=== PATIENT | male | born 1995 | race Two or more races ===

== ENCOUNTER → 2025-01-26 | Outpatient (CLI) | payer BC, SELFPAY ==
[2025-01-26 10:55] LABS: Collection Type, Urine Clean Catch; WBC,Urine 0 /hpf (0-5)
[2025-01-26 11:30] LABS: Basophils # (Auto) 0.1 Thou/mm3 (0.0-0.2); Basophils % (Auto) 1 % (0-2.5); Eosinophils # (Auto) 0.8 Thou/mm3 (0.0-0.5); Eosinophils % (Auto) 8 % (0-10); Hemoglobin 16.1 g/dL (13.5-16.0); Immature Granulocytes % (Auto) 2 % (0-0); Immature Granulocytes Auto 0.19 Thou/mm3 (0.00-0.00); Lymphocytes # (Auto) 2.2 Thou/mm3 (1.0-4.8); Lymphocytes % (Auto) 21 % (10-50); Mean Corpuscular HGB Conc 32.9 g/dl (31.0-37.0); Mean Corpuscular Hemoglobin 28.4 pg (25.0-35.0); Mean Corpuscular Volume 86 fL (80-100); Monocytes # (Auto) 0.7 Thou/mm3 (0.0-0.8); Monocytes % (Auto) 7 % (0-12); Neutrophils # (Auto) 6.2 Thou/mm3 (1.8-7.7); Neutrophils % (Auto) 61 % (37-80); Nucleated Red Blood Cell % 0 /100 WBC (0); Platelet Count 315 Thou/mm3 (140-440); RDW Standard Deviation 40.6 fL (35.1-43.9); Red Blood Count 5.67 Miln/mm3 (4.50-5.90); White Blood Count 10.2 Thou/mm3 (3.8-10.6)
[2025-01-26 11:37] LABS: Bilirubin,Urine Negative (Negative); Blood,Urine Negative (Negative); Clarity,Urine Clear (Clear/Hazy); Color,Urine Lt-Yellow (Lt Yel-Yel); Culture Indicated,Urine Not Indicated; Glucose, Urine Negative (Negative); Ketones,Urine Negative (Negative); Leukocyte Esterase,Urine Negative (Negative); Nitrite,Urine Negative (Negative); Protein,Urine 1+ (Neg - Trace); RBC,Urine 3 /hpf (0-3); Specific Gravity,Urine 1.024 (1.001-1.035); Squamous Epithelial Cell,Urine < 1 /hpf (0-5); Urobilinogen,Urine Negative mg/dL (0.0-1.0)
[2025-01-26 11:46] LABS: Alanine Aminotransferase 42 U/L (10-49); Albumin, Serum 4.7 gm/dL (3.5-5.0); Albumin/Globulin Ratio 1.7 (1.2-2.2); Alkaline Phosphatase 59 U/L (46-116); Anion Gap 7 (7-16); Aspartate Amino Transferase 32 U/L (0-34); BUN/Creatinine Ratio 11 Ratio (12-20); Bilirubin,Total 0.4 mg/dL (0.3-1.2); Blood Urea Nitrogen 11 mg/dL (9-23); Calcium 9.8 mg/dL (8.3-10.6); Calcium (Corrected) 9.8 mg/dL (8.5-10.1); Cardiac Risk Estimate 6.1 RATIO (4.0-6.7); Chloride 103 mMol/L (98-107); Cholesterol 244 mg/dL (132-200); Free T4 (Free Thyroxine) 1.31 ng/dL (0.89-1.76); Globulin 2.7 gm/dL (2.3-3.5); Glucose 115 mg/dL (74-106); HDL Cholesterol 40 mg/dL (40-60); LDL Cholesterol,Calculated 155 mg/dL (0-130); Osmolality,Calculated 279 (275-295); Potassium 4.6 mMol/L (3.4-5.1); Sodium 140 mMol/L (136-145); Thyroid Stimulating Hormone 2.78 uIU/mL (0.55-4.78); Total Protein 7.4 gm/dL (5.7-8.2); Triglycerides 245 mg/dL (30-150); eGFR > 60 See Note
[2025-01-26 11:52] LABS: Sperm,Urine Present
== END | disposition home or self-care (01) ==
LOC: COPL 09:46
PROVIDERS: PCP Internal Medicine; Referring Provider Internal Medicine; Visit Provider Internal Medicine
DX: Z00.00 Encounter for general adult medical examination without abnormal findings (principal)
CPT/HCPCS: 36415; 80053; 80061; 81001; 84439; 84443; 85025

== ENCOUNTER 2025-02-20 14:35 | Emergency (ER) | payer BC, SELFPAY ==
[2025-02-20 14:46] VITALS: BP 143/87; PULSE 75; RESP 18; TEMP 36.9; O2SAT 96
--- NOTE | 2025-02-20 14:59 | PD.EDRME ---
Rapid Medical Screening Exam RME Arrival date/time: 02/20/25 14:35 29-year-old male with a history of anxiety and depression presents to the emergency room with a chief complaint of suicidal ideation. Patient states he has a plan in place. I have greeted and performed a focused initial assessment of this patient. A comprehensive ED assessment and evaluation of the patient, analysis of all test results, and completion of the medical decision making process will be conducted by additional ED providers. Chief Complaint: Suicidal Vital signs: Vital Signs Temperature 98.4 F 02/20/25 14:46 Pulse Rate 75 02/20/25 14:46 Respiratory Rate 18 02/20/25 14:46 Blood Pressure 143/87 H 02/20/25 14:46 Pulse Oximetry (%) 96 02/20/25 14:46 Oxygen Delivery Method Room Air 02/20/25 14:46 Vital signs reviewed by provider: Yes
[2025-02-20 15:35] LABS: Collection Type, Urine Clean Catch
[2025-02-20 15:43] LABS: Basophils # (Auto) 0.1 Thou/mm3 (0.0-0.2); Basophils % (Auto) 1 % (0-2.5); Eosinophils # (Auto) 0.1 Thou/mm3 (0.0-0.5); Eosinophils % (Auto) 1 % (0-10); Hematocrit 43.5 % (41.0-53.0); Immature Granulocytes % (Auto) 1 % (0-0); Immature Granulocytes Auto 0.07 Thou/mm3 (0.00-0.00); Lymphocytes # (Auto) 1.9 Thou/mm3 (1.0-4.8); Lymphocytes % (Auto) 22 % (10-50); Mean Corpuscular HGB Conc 34.5 g/dl (31.0-37.0); Mean Corpuscular Hemoglobin 28.4 pg (25.0-35.0); Mean Corpuscular Volume 82 fL (80-100); Monocytes # (Auto) 0.8 Thou/mm3 (0.0-0.8); Monocytes % (Auto) 10 % (0-12); Neutrophils # (Auto) 5.5 Thou/mm3 (1.8-7.7); Neutrophils % (Auto) 65 % (37-80); Nucleated Red Blood Cell % 0 /100 WBC (0); Platelet Count 288 Thou/mm3 (140-440); RDW Standard Deviation 38.9 fL (35.1-43.9); Red Blood Count 5.29 Miln/mm3 (4.50-5.90); White Blood Count 8.5 Thou/mm3 (3.8-10.6)
[2025-02-20 15:51] LABS: Bacteria,Urine 2+; Bilirubin,Urine Negative (Negative); Blood,Urine 1+ (Negative); Clarity,Urine Clear (Clear/Hazy); Color,Urine Yellow (Lt Yel-Yel); Glucose, Urine Negative (Negative); Ketones,Urine 3+ (Negative); Leukocyte Esterase,Urine Negative (Negative); Nitrite,Urine Negative (Negative); Protein,Urine 1+ (Neg - Trace); RBC,Urine 8 /hpf (0-3); Specific Gravity,Urine 1.032 (1.001-1.035); Squamous Epithelial Cell,Urine < 1 /hpf (0-5); WBC,Urine 1 /hpf (0-5)
[2025-02-20 15:55] LABS: Sperm,Urine Present
[2025-02-20 15:59] LABS: Alanine Aminotransferase 37 U/L (10-49); Albumin, Serum 4.9 gm/dL (3.5-5.0); Albumin/Globulin Ratio 1.8 (1.2-2.2); Alkaline Phosphatase 53 U/L (46-116); Amphetamine/Methamp Scrn,U Negative (Negative); Anion Gap 10 (7-16); Aspartate Amino Transferase 34 U/L (0-34); BUN/Creatinine Ratio 16 Ratio (12-20); Barbiturate Screen,Urine Negative (Negative); Benzodiazepines Screen,Urine Negative (Negative); Benzoylecgonine Screen, Ur Negative (Negative); Bilirubin,Total 0.8 mg/dL (0.3-1.2); Blood Urea Nitrogen 13 mg/dL (9-23); Calcium 9.4 mg/dL (8.3-10.6); Calcium (Corrected) 9.4 mg/dL (8.5-10.1); Carbon Dioxide 26.6 mMol/L (20.0-31.0); Chloride 103 mMol/L (98-107); Creatinine (Component) 0.8 mg/dL (0.6-1.3); Fentanyl Screen,Urine Negative (Negative); Globulin 2.8 gm/dL (2.3-3.5); Glucose 105 mg/dL (74-106); Opiate Screen,Urine Negative (Negative); Osmolality,Calculated 279 (275-295); Potassium 3.5 mMol/L (3.4-5.1); Sodium 140 mMol/L (136-145); THC Screen,Urine Positive (Negative); Total Protein 7.7 gm/dL (5.7-8.2); eGFR > 60 See Note
--- NOTE | 2025-02-20 16:26 | PD.EDADULT ---
ED General RME/HPI General Chief complaint: Suicidal Stated complaint: SI; PT ON PROZAC & FEELS WORSE; SENT BY PCP Time Seen by Provider: 02/20/25 16:20 Arrival date/time: 02/20/25 14:35 CC: Suicidal ideation with plan HPI onset approximately 2 days ago patient was started on Prozac approximately 2 weeks ago for several days was on daily basis partner states that he was a zombie , decided take it every other day and then went every third day today was the day 3 to retake and he appeared ill , the patient denies any physical pain but states he has thoughts of harming himself. Patient is animated with direct eye contact no flat affect appears worried. RME / HPI RME / HPI narrative: 02/20/25 14:35 29-year-old male with a history of anxiety and depression presents to the emergency room with a chief complaint of suicidal ideation. Patient states he has a plan in place. I have greeted and performed a focused initial assessment of this patient. A comprehensive ED assessment and evaluation of the patient, analysis of all test results, and completion of the medical decision making process will be conducted by additional ED providers. Related Data Allergies Allergy/AdvReac Type Severity Reaction Status Date / Time No Known Allergies Allergy Verified 02/20/25 14:38 Review of Systems Review of Systems Narrative Review of Systems: GEN: No fever, no chills, no weight loss EYES: No discharge, no visual changes, no pain HEENT: No ear pain, no congestion, no sore throat PULM: No shortness of breath, no cough, no congestion CV: No chest pain, no dyspnea on exertion, no palpitations GI: No nausea, no vomiting, no diarrhea, no pain, no constipation : No frequency, no urgency, no dysuria MUSC/SKEL: No joint pain, no back pain SKIN: No rash PSYCH: No hallucinations, + depression HEME/LYMPH: No easy bleeding or bruising tendencies NEURO: No weakness, no headache Past Medical History Past Medical History CARDIAC: Negative Congestive Heart Failure RESPIRATORY: Negative Chronic Obstructive Pulmonary Disease (COPD) GENITOURINARY: Negative Renal Disease MUSCULOSKELETAL: Positive Musculoskeletal Disorders (fshd muscular dystrophy) ENDOCRINE: Negative Diabetes Mellitus Type 1 or Diabetes Mellitus Type 2 PSYCHO/SOCIAL: Positive Depression and Anxiety Social History SMOKING STATUS: Never smoker ED Exam Narrative Physical exam: [General: Obese not in any acute distress Head normocephalic HEENT: Within acceptable limits Neck is supple nontender Chest equal chest rise nontender to palpation Respiratory: Clear to auscultation no wheezes crackles or rubs CV: Rate rhythm is regular no murmurs rubs or clicks Abdomen is distended secondary to body habitus soft nontender no masses positive bowel sounds all 4 quadrants Back: No CVA tenderness no spinous process tenderness from cervical spine thoracic and lumbar spine Skin: Intact no petechiae rash induration ulceration or crepitus Extremities: Moving all extremity against resistance cap refill less than 2 seconds neurosensory intact Neuro: Awake alert oriented x3 Glascow coma 15 no focal deficits] Course Course Course Narrative: At 1628 patient is cleared for crisis management. Was informed at 1806 that the crisis management worker has gone for the day and will not be able to evaluate this patient I do not feel this patient needs to be placed on a hold. The patient is taking Prozac, and is in a window of opportunity for inflicting self-harm however he is in a good social circumstances with his and children at home. The patient remains animated with direct eye contact and very open. I have contracted with him verbally that he agrees to go home and return in the morning for reevaluation. I am comfortable discharging this patient home until tomorrow morning. Quality Measures none Orders Category Date Time Status Suicide precautions NOW Care 02/20/25 15:01 Active CBC Stat Lab 02/20/25 15:20 Completed CMP [Comprehensive Metabolic Panel] Stat Lab 02/20/25 15:20 Completed Drug Screen,Urine Stat Lab 02/20/25 15:20 Completed UA [Urinalysis] Stat Lab 02/20/25 15:20 Completed Vital Signs Vital signs: Vital Signs Temperature 98.4 F 02/20/25 14:46 Pulse Rate 75 02/20/25 14:46 Respiratory Rate 18 02/20/25 14:46 Blood Pressure 143/87 H 02/20/25 14:46 Pulse Oximetry (%) 96 02/20/25 14:46 Oxygen Delivery Method Room Air 02/20/25 14:46 Discharge Plan Plan Patient Disposition: HOME (Self Care) Patient condition on transfer: Stable Prescriptions/Referrals Referrals: Valencia Elizondo MD [Primary Care Provider] - In 1 week Problem List Clinical Impression: Suicidal ideation Patient/Caregiver Discharge Instructions Education Materials: Depression and Suicide Print Language: Italian Stand Alone Forms: Wilda Award Info., Work/School Release, Patient Portal Info Letter ANDRES/ELIJAH Supervising Physician ANDRES/ELIJAH Supervising Physician: Adam Levin ENP MDM Clinical Information Provided by: patient and family Medical Records reviewed [facility] Meds/Rx considered, not ordered None Labs/Rad/Tests considered, not ordered None Labs Lab(s) Interpretation(s): CBC shows no acute leukocytosis anemia thrombocytopenia CMP shows no acute electrolyte imbalances renal impairment transaminitis or T. bili elevation Urine 1+ protein 3+ ketones, 1+ blood 2+ bacteria sperm present. U tox positive for THC.
--- NOTE | 2025-02-20 16:54 | PC.NURSE ---
PT CAME IN WITH FOR INCREASES SI. PT STATES THAT HE RECENTLY STARTED PROZAC FOR ANXIETY & DEPRESSION. HE CAMES THAT THE 3 WEEKS HE WAS ON PROZAC THAT HE REPORTED WORSEN ANXIETY AND INCREASED SI.
[2025-02-20 17:46] VITALS: BP 149/81; PULSE 60; RESP 18; TEMP 36.8; O2SAT 98
--- NOTE | 2025-02-20 17:55 | PC.NURSE ---
PROVIDER EVALUATED PT AND DID NOT PUT PT ON A 1799 HOLD
--- NOTE | 2025-02-20 18:13 | PC.NURSE ---
provider was talking to pt about situation. social work faculty member did not evaluate pt. social work faculty member will not be here until tomorrow. provider explained to pt that they wont be able to get evaluated until tomorrow. provider explained to pt that they can stay and wiat until tomorrow or go home and come back tomorrow. per provider and pt a verbal contract was done for pt to come back tomorrow at 0830. pt, pt's , and provider agreed that pt will come back tomorrow.
== END 2025-02-20 18:17 | disposition home or self-care (01) ==
PROVIDERS: Nurse Practitioner Family; Emergency Provider Family Medicine; PCP Internal Medicine
DX: R45.851 Suicidal ideations (principal); F32.A Depression, unspecified; F41.9 Anxiety disorder, unspecified
CPT/HCPCS: 36415; 80053; 80307; 81001; 85025; 96127; 99283

== ENCOUNTER 2025-02-21 10:14 | Emergency (ER) | payer BC, SELFPAY ==
[2025-02-21 10:51] VITALS: BP 149/85; PULSE 75; RESP 16; TEMP 36.8; O2SAT 95; BMI 33.4
--- NOTE | 2025-02-21 11:16 | EDRME_ITS ---
Rapid Medical Screening Exam E Arrival date/time: 02/21/25 10:14 This is a 29-year-old male that comes in with complaints of suicidal thoughts suicidal ideations. Patient was seen here yesterday and was told to come back today because there was no elementary school social worker last night. Patient reports that he recently started Prozac 40 mg daily. Patient states that is since he started taking the Prozac he was feeling very anxious and he would wax and wane from feeling tired with no energy along with episodes of anxiety. Patient primary provider went on vacation and was not able to adjust patient's medication or change to a different medication. Patient self treated and started taking the medication every other day. Patient stated that the symptoms got a little bit better but then he started to stretch it to every third day and patient started having suicidal ideations. Patient has had history of anxiety and depression. Patient states he was previously on Zoloft but he did not feel like it worked in the past. Patient states he has a plan to hurt himself with something in the household. Patient's family members at the bedside with him currently. I have greeted and performed a focused initial assessment of this patient. Initial appropriate labs ordered at this time. A comprehensive ED assessment and evaluation of the patient and analysis of all test and completion of medical decision making process will be conducted by additional ED provider. Chief Complaint: Psychiatric Symptoms Time Seen by Provider: 02/21/25 10:18 Vital signs: Vital Signs Temperature 98.3 F 02/21/25 10:51 Pulse Rate 75 02/21/25 10:51 Respiratory Rate 16 02/21/25 10:51 Blood Pressure 149/85 H 02/21/25 10:51 Pulse Oximetry (%) 95 02/21/25 10:51 Oxygen Delivery Method Room Air 02/21/25 10:51
[2025-02-21 11:53] LABS: Amphetamine/Methamp Scrn,U Negative (Negative); Barbiturate Screen,Urine Negative (Negative); Benzodiazepines Screen,Urine Negative (Negative); Benzoylecgonine Screen, Ur Negative (Negative); Fentanyl Screen,Urine Negative (Negative); Opiate Screen,Urine Negative (Negative); THC Screen,Urine Positive (Negative)
--- NOTE | 2025-02-21 11:58 | EDNOTE_ITS ---
<Statement entered by Bing Mercer MD - 02/22/25 09:01> As co-signing physician, I was present and available for consult prn. I concur with the plan and care as documented by the midlevel provider. ED General RME/HPI General Chief complaint: Psychiatric Symptoms Stated complaint: PSYCH EVAL Time Seen by Provider: 02/21/25 10:18 Arrival date/time: 02/21/25 10:14 CC: Suicidal ideation yesterday with plan HPI patient was seen yesterday, was unable to be seen by case management regarding suicidal ideation patient has recent thoughts of harming himself after starting on Prozac approximately 1 week ago which made him feel like a zombie , then patient went to every other day with the medications and now is beginning to have active thoughts of suicidal ideation with a plan using a knife or pills. Patient is awake alert oriented. I saw the patient yesterday and verbally contracted with him to return tomorrow morning the patient is with his , he is very open genuine sergio with direct eye contact and very animated in his responses to all questions. He is transparent with these issues with his , he has small children at home I thought pertinent to send him home to see his children's who is missing. As agreed, the patient has returned for evaluation. at his side. Currently the patient is awake alert oriented nontoxic-appearing not in any acute distress. RME / HPI RME / HPI narrative: 02/21/25 10:14 This is a 29-year-old male that comes in with complaints of suicidal thoughts suicidal ideations. Patient was seen here yesterday and was told to come back today because there was no social research assistant last night. Patient reports that he recently started Prozac 40 mg daily. Patient states that is since he started taking the Prozac he was feeling very anxious and he would wax and wane from feeling tired with no energy along with episodes of anxiety. Patient primary provider went on vacation and was not able to adjust patient's medication or change to a different medication. Patient self treated and started taking the medication every other day. Patient stated that the symptoms got a little bit better but then he started to stretch it to every third day and patient started having suicidal ideations. Patient has had history of anxiety and depression. Patient states he was previously on Zoloft but he did not feel like it worked in the past. Patient states he has a plan to hurt himself with something in the household. Patient's family members at the bedside with him currently. I have greeted and performed a focused initial assessment of this patient. Initial appropriate labs ordered at this time. A comprehensive ED assessment and evaluation of the patient and analysis of all test and completion of medical decision making process will be conducted by additional ED provider. Related Data Allergies Allergy/AdvReac Type Severity Reaction Status Date / Time No Known Allergies Allergy Verified 02/21/25 10:15 Past Medical History Past Medical History CARDIAC: Negative Congestive Heart Failure RESPIRATORY: Negative Chronic Obstructive Pulmonary Disease (COPD) GENITOURINARY: Negative Renal Disease MUSCULOSKELETAL: Positive Musculoskeletal Disorders (fshd muscular dystrophy) ENDOCRINE: Negative Diabetes Mellitus Type 1 or Diabetes Mellitus Type 2 PSYCHO/SOCIAL: Positive Depression and Anxiety Social History SMOKING STATUS: Current every day smoker ED Exam Narrative Physical exam: [General: Obese not in any acute distress Head normocephalic HEENT: Within acceptable limits Neck is supple nontender Chest equal chest rise nontender to palpation Respiratory: Clear to auscultation no wheezes crackles or rubs CV: Rate rhythm is regular no murmurs rubs or clicks Abdomen is distended secondary to body habitus soft nontender no masses positive bowel sounds all 4 quadrants Back: No CVA tenderness no spinous process tenderness from cervical spine thoracic and lumbar spine Skin: Intact no petechiae rash induration ulceration or crepitus Extremities: Moving all extremity against resistance cap refill less than 2 seconds neurosensory intact Neuro: Awake alert oriented x3 Glascow coma 15 no focal deficits] Course Course Course Narrative: Patient seen by social media coordinator, patient has an appointment with counselor today, and follow-up appoint with psychiatry. Patient does not meet criteria for hold. Will discharge the patient home Quality Measures none Orders Category Date Time Status Consult Bottom Finisher X1 Care 02/21/25 11:19 Active Alcohol, Blood Medical Stat Lab 02/21/25 11:53 Completed Drug Screen,Urine Stat Lab 02/21/25 11:33 Completed Vital Signs Vital signs: Vital Signs Temperature 98.3 F 02/21/25 10:51 Pulse Rate 75 02/21/25 10:51 Respiratory Rate 16 02/21/25 10:51 Blood Pressure 149/85 H 02/21/25 10:51 Pulse Oximetry (%) 95 02/21/25 10:51 Oxygen Delivery Method Room Air 02/21/25 10:51 Discharge Plan Plan Patient Disposition: HOME (Self Care) Patient condition on transfer: Stable Prescriptions/Referrals Referrals: Aashish Cobb MD [Physician] - In 1 week No Primary/Family,Physician [Primary Care Provider] - In 1 week Problem List Clinical Impression: Suicidal ideation Patient/Caregiver Discharge Instructions Education Materials: Recognizing Suicide Warning ... Print Language: French Stand Alone Forms: Wilda Award Info., Work/School Release, Patient Portal Info Letter PA/ASSISTANT ASSOCIATE PROFESSOR Supervising Physician PA/ASSISTANT ASSOCIATE PROFESSOR Supervising Physician: Adam Levin ENP MDM Clinical Information Provided by: patient and spouse
[2025-02-21 12:49] LABS: Alcohol, Blood Medical < 3.0 mg/dL (0-10.0)
--- NOTE | 2025-02-21 13:07 | PC.SS ---
ZULMA Butler met with the patient for a mental health evaluation. Patient aware of role and reason for contact. Patient informed of limits of confidentiality. Patient appears to be alert and oriented to person, place and situation. Patient appears to be well kempt with good hygiene. No signs of delusion or hallucinations a observed. Patient able to engage in evaluation appropriately without any issues. Patient confirms demographic information and allowed , Angela to be present for evaluation. Patient also identified Angela as his emergency contact. Patient reports he came in yesterday due to SI. Patient denies SI and HI today. Patient denies audio and visual hallucinations. Patient informs he recently started taking Prozac 40mg and states the medication was making him feel like a Zombie . Per patient he wants to see a psychiatrist as soon as possible for medication management due to the symptoms he has exhibited. Patient denies history of suicide attempts or being placed on a hold in the past. Patient informs he was diagnosed with Anxiety and Depression by his PCP Angela Bucio. Patient informs he sees a therapist via telehealth named Meme, with an appointment scheduled for today. Patient also report having an appointment with psychiatry next week provider: Domenic Calix. Patient reports having a good support system at home from spouse, Angela and mother in law Sagrario. Patient denies any medical issues and reports being independent with ADL's. Per patient he has many reasons to live, his children. Patient does not have any intent to self harm or any means/plan. Patient reports THC use at times, denies that it is use to cope. Patient feels comfortable returning home with spouse Angela and is receptive to receiving resources. After clinical consultation with MICAELA, Nayana Sheth, patient able to safety plan with spouse Angela and ensure patient has adequate support following hospital discharge, follow up with therapist today and psychiatrist next week. Patient was provided with community resources including crisis contact information, suicide hotline number and local authority information in case of an emergency. Patient is encouraged to return to the ED if symptoms worsen. Patient's at bed side and agrees to provide support, ensures there are no firearms or weapons in the home. Both parties are receptive to resources and safety plan. VASQUEZ Levin was updated on disposition plan.
== END 2025-02-21 13:12 | disposition home or self-care (01) ==
PROVIDERS: Nurse Practitioner Family; Emergency Provider Emergency Medicine
DX: R45.851 Suicidal ideations (principal)
CPT/HCPCS: 36415; 80307; 80320; 90839; 99284; G0480